=== PATIENT | male | born 1975 | race Two or more races ===

== ENCOUNTER 2017-11-01 04:57 | Emergency (ER) | payer MEDICAID ==
[~2017-11-01] VITALS: Ht 172.7 cm; Wt 92.1 kg
[2017-11-01 04:59] VITALS: BP 135/96; Ht 172.7 cm; Wt 92.1 kg
[2017-11-01 05:33] LABS: BASOPHILS 0.5 % (0-2); EOSINOPHILS 0.9 % (0-7); HEMATOCRIT 41.3 % (42.0-54.0); IMMATURE GRANULOCYTES 0.2 % (0-5); LYMPHOCYTES 31.1 % (15-50); MCH 29.6 pg (26.0-34.0); MCHC 36.3 g/dL (31.0-37.0); MCV 81.5 fL (80.0-100.0); MEAN PLATELET VOLUME 11.4 fL (7.4-10.4); MONOCYTES 7.7 % (2-11); NEUTROPHILS 59.6 % (40-80); PLATELET COUNT 188 10x3/uL (130-400); RBC 5.07 10x6/uL (4.20-6.10); RDW 12.9 % (11.5-14.5); WBC 8.7 10x3/uL (4.8-10.8)
[2017-11-01 05:53] LABS: ALBUMIN 3.7 g/dL (3.4-5.0); ALKALINE PHOSPHATASE 58 U/L (46-116); ALT (SGPT) 42 U/L (10-68); BILIRUBIN - TOTAL 1.27 mg/dL (0.2-1.3); CALC OSMOLALITY 281 mosm/kg (275-300); CALCIUM 8.8 mg/dL (8.5-10.1); CARBON DIOXIDE 28.4 mmol/L (21.0-32.0); CHLORIDE - SERUM 102 mmol/L (98-107); CREATININE - SERUM 0.9 mg/dL (0.6-1.3); GLUCOSE 194 mg/dL (74-106); POTASSIUM - SERUM 3.6 mmol/L (3.5-5.1); PROTEIN - SERUM 7.7 g/dL (6.4-8.2); SODIUM 139 mmol/L (136-145); UREA NITROGEN 11 mg/dL (7-18); eGFR NON AFRICAN AMERICAN > 90 mL/min (90-120)
[2017-11-01 05:58] LABS: CREATINE KINASE 107 UL (21-232); TROPONIN-I < 0.017 ng/mL (0.000-0.060)
[2017-11-01] MEDS ORDERED: ULTRACET TABLET1 TAB PO (06:27)
[2017-11-01] MEDS ORDERED: TOPAMAX50 MG PO (06:27)
[2017-11-01] MEDS ORDERED: KLONOPIN1 MG PO (06:27)
[2017-11-01 06:51] LABS: UDS - AMPHET POSITIVE QUAL (NEGATIVE); UDS - BARB NEGATIVE QUAL (NEGATIVE); UDS - BENZO NEGATIVE QUAL (NEGATIVE); UDS - COCAINE POSITIVE QUAL (NEGATIVE); UDS - OPIATE NEGATIVE QUAL (NEGATIVE); UDS - PCP NEGATIVE QUAL (NEGATIVE); UDS - THC NEGATIVE QUAL (NEGATIVE)
== END 2017-11-01 06:37 | disposition home or self-care (01) ==
LOC: D.ER 04:57 → EDBD 04:57 → D.ER 06:37
PROVIDERS: Emergency Medicine
DX: R51 Headache (principal); F41.9 Anxiety disorder, unspecified; R07.9 Chest pain, unspecified; F19.10 Other psychoactive substance abuse, uncomplicated

== ENCOUNTER 2018-06-26 16:12 | Inpatient (IN) | payer MEDICAID ==
[~2018-06-26] VITALS: Ht 172.7 cm; Wt 97.5 kg
[~2018-06-26 16:12] MED LIST: KLONOPIN1 MG PO; TOPAMAX50 MG PO; ULTRACET TABLET1 TAB PO
[2018-06-26] MEDS ORDERED: ZYPREXA10 MG PO (16:22)
[2018-06-26] MEDS ORDERED: GLUCOPHAGE1000 MG PO (16:22)
[2018-06-26 16:53] LABS: BASOPHILS 0.8 % (0-2); EOSINOPHILS 1.8 % (0-7); HEMATOCRIT 44.2 % (42.0-54.0); HEMOGLOBIN 15.3 g/dL (13.5-17.5); IMMATURE GRANULOCYTES 0.3 % (0-5); MCH 28.8 pg (26.0-34.0); MCHC 34.6 g/dL (31.0-37.0); MCV 83.2 fL (80.0-100.0); MEAN PLATELET VOLUME 10.8 fL (7.4-10.4); MONOCYTES 7.1 % (2-11); RBC 5.31 10x6/uL (4.20-6.10); RDW 12.6 % (11.5-14.5); WBC 9.2 10x3/uL (4.8-10.8)
[2018-06-26 17:13] LABS: PLATELET COUNT 250 10x3/uL (130-400)
[2018-06-26 17:23] LABS: ALBUMIN 3.3 g/dL (3.4-5.0); ALKALINE PHOSPHATASE 108 U/L (46-116); ALT (SGPT) 24 U/L (10-68); BILIRUBIN - TOTAL 0.37 mg/dL (0.2-1.3); CALC OSMOLALITY 276 mosm/kg (275-300); CALCIUM 8.9 mg/dL (8.5-10.1); CARBON DIOXIDE 27.3 mmol/L (21.0-32.0); CHLORIDE - SERUM 94 mmol/L (98-107); CREATININE - SERUM 0.7 mg/dL (0.6-1.3); POTASSIUM - SERUM 4.4 mmol/L (3.5-5.1); PROTEIN - SERUM 8.1 g/dL (6.4-8.2); SODIUM 130 mmol/L (136-145); UREA NITROGEN 10 mg/dL (7-18); eGFR NON AFRICAN AMERICAN > 90 mL/min (90-120)
[2018-06-26 17:24] LABS: GLUCOSE 398 mg/dL (74-106)
[2018-06-26 17:29] LABS: TROPONIN-I < 0.017 ng/mL (0.000-0.060)
[2018-06-26] MEDS ORDERED: GABAPENTIN100 MG PO (23:38)
[2018-06-26] MEDS ORDERED: STRATTERA80 MG PO (23:40)
[2018-06-26] MEDS ORDERED: VISTARIL50 MG PO (23:41)
[2018-06-27] VITALS: BP 122/78
[2018-06-27 00:53] VITALS: BP 122/78; BMI 32.7
[2018-06-27 04:00] VITALS: BP 114/77
[2018-06-27] MEDS ORDERED: KLONOPIN1 MG PO (05:09)
[2018-06-27 07:39] LABS: BASOPHILS 0.7 % (0-2); EOSINOPHILS 2.1 % (0-7); HEMATOCRIT 40.9 % (42.0-54.0); HEMOGLOBIN 14.3 g/dL (13.5-17.5); IMMATURE GRANULOCYTES 0.4 % (0-5); LYMPHOCYTES 37.5 % (15-50); MCH 28.7 pg (26.0-34.0); MCV 82.1 fL (80.0-100.0); MEAN PLATELET VOLUME 11.1 fL (7.4-10.4); MONOCYTES 5.8 % (2-11); NEUTROPHILS 53.5 % (40-80); PLATELET COUNT 253 10x3/uL (130-400); RBC 4.98 10x6/uL (4.20-6.10); RDW 12.6 % (11.5-14.5); WBC 9.4 10x3/uL (4.8-10.8)
[2018-06-27 07:50] VITALS: BP 110/70
[2018-06-27 08:01] LABS: ALBUMIN 2.8 g/dL (3.4-5.0); ALKALINE PHOSPHATASE 62 U/L (46-116); ALT (SGPT) 25 U/L (10-68); BILIRUBIN - TOTAL 0.43 mg/dL (0.2-1.3); CALCIUM 8.2 mg/dL (8.5-10.1); CARBON DIOXIDE 28.4 mmol/L (21.0-32.0); CHLORIDE - SERUM 100 mmol/L (98-107); CREATININE - SERUM 0.8 mg/dL (0.6-1.3); POTASSIUM - SERUM 4.1 mmol/L (3.5-5.1); PROTEIN - SERUM 7.4 g/dL (6.4-8.2); SODIUM 136 mmol/L (136-145); UREA NITROGEN 11 mg/dL (7-18); eGFR NON AFRICAN AMERICAN > 90 mL/min (90-120)
[2018-06-27 08:09] LABS: CALC OSMOLALITY 277 mosm/kg (275-300); GLUCOSE 232 mg/dL (74-106)
[2018-06-27 12:51] VITALS: BP 133/91
[2018-06-27 14:59] VITALS: Ht 172.7 cm; Wt 97.5 kg
[2018-06-27 18:55] VITALS: BP 107/63
[2018-06-28 00:17] VITALS: BP 115/74
[2018-06-28 05:30] VITALS: BP 121/71
[2018-06-28 08:10] VITALS: BP 135/95
[2018-06-28 09:23] LABS: ALKALINE PHOSPHATASE 87 U/L (46-116); ALT (SGPT) 28 U/L (10-68); BILIRUBIN - TOTAL 0.52 mg/dL (0.2-1.3); CALC OSMOLALITY 274 mosm/kg (275-300); CALCIUM 8.5 mg/dL (8.5-10.1); CARBON DIOXIDE 26.5 mmol/L (21.0-32.0); CHLORIDE - SERUM 95 mmol/L (98-107); CREATININE - SERUM 0.8 mg/dL (0.6-1.3); POTASSIUM - SERUM 4.4 mmol/L (3.5-5.1); PROTEIN - SERUM 7.4 g/dL (6.4-8.2); SODIUM 131 mmol/L (136-145); UREA NITROGEN 11 mg/dL (7-18); eGFR NON AFRICAN AMERICAN > 90 mL/min (90-120)
[2018-06-28 09:24] LABS: GLUCOSE 339 mg/dL (74-106)
[2018-06-28 11:11] LABS: APPEARANCE CLEAR (CLEAR); BILIRUBIN NEGATIVE (NEGATIVE); COLOR STRAW (YELLOW); GLUCOSE 1000 mg/dL (NEGATIVE); KETONE NEGATIVE (NEGATIVE); NITRITE NEGATIVE (NEGATIVE); PROTEIN NEGATIVE (NEGATIVE); SPECIFIC GRAVITY 1.015 (1.005-1.020); UROBILINOGEN NORMAL (NORMAL)
[2018-06-28 12:25] LABS: BASOPHILS 0.3 % (0-2); EOSINOPHILS 1.2 % (0-7); HEMATOCRIT 39.2 % (42.0-54.0); HEMOGLOBIN 14.3 g/dL (13.5-17.5); IMMATURE GRANULOCYTES 0.4 % (0-5); LYMPHOCYTES 20.8 % (15-50); MCH 29.1 pg (26.0-34.0); MCHC 36.5 g/dL (31.0-37.0); MONOCYTES 4.5 % (2-11); NEUTROPHILS 72.8 % (40-80); PLATELET COUNT 286 10x3/uL (130-400); RBC 4.91 10x6/uL (4.20-6.10); RDW 12.1 % (11.5-14.5); WBC 11.4 10x3/uL (4.8-10.8)
[2018-06-28 12:26] LABS: MCV 79.8 fL (80.0-100.0)
--- NOTE | 2018-06-28 16:13 | MORECARE ---
CASE MANAGEMENT DISCHARGE SUMMARY PATIENT: ZAHIDA BOWENS GARRETT UNIT: [id number] ADM DATE: 06/26/18 AGE: 42 : [birth year] SEX: M ROOM/BED: D.1211 AUTHOR: BAUTISTA FORMAN PHYSICIAN: REFERRING PHYSICIAN: JOSE FRANCISCO CHOPRA MD DATE OF SERVICE: 06/28/18 Discharge Plan Patient Name: ZAHIDA BOWENS [facility] [facility] 1975 Planned Disposition: Anticipated Discharge Date: Discharge Date: Expected LOS: Initial Reviewer: [email or web address] Initial Review Date: 06/28/2018 Generated: 06/28/18 5:13 pm DCPIA - Discharge Planning Initial Assessment Updated by [email or web address]: Beatriz Barger on 06/28/18 4:11 pm * PCP YONAS * Pharmacy [facility] * Preadmission Environment Home with Family * ADLs Independent * List name and contact numbers for known caregivers / representatives who currently or will assist patient after discharge: AROLDO , , * Can the patient safely return to the preadmission environment? Yes * Has this patient been hospitalized within the prior 30 days at any hospital? No Patient Name: ZAHIDA BOWENS Page 08404 at 1613 All edits/amendments must be made on the electronic document DICTATION DATE: 06/28/181611 RADIO PRESENTER: GILSON 06/28/18 1612 RPT#: [id number] [place] DATE: STATUS: ADM IN [facility] [address] [place] [address] END OF REPORT
--- NOTE | 2018-06-28 16:22 | MORECARE ---
CASE MANAGEMENT DISCHARGE SUMMARY PATIENT: ZAHIDA BOWENS GARRETT UNIT: [id number] ADM DATE: 06/26/18 AGE: 42 : [birth year] SEX: M ROOM/BED: D.1211 AUTHOR: BAUTISTA FORMAN PHYSICIAN: REFERRING PHYSICIAN: JOSE FRANCISCO CHOPRA MD DATE OF SERVICE: 06/28/18 Discharge Plan Patient Name: ZAHIDA BOWENS Facility: [facility]:[place] : 1975 Planned Disposition: Anticipated Discharge Date: Discharge Date: Expected LOS: Initial Reviewer: [email or web address] Initial Review Date: 06/28/2018 Generated: 06/28/18 5:22 pm Comments DCP- Discharge Planning Updated by [email or web address]: Beatriz Barger on 06/28/18 3:[address] Patient Name: ZAHIDA BOWENS Admission Status: ER Accout number: [id number] Admission Date: 06-26-2018 : 1975 Admission Diagnosis: Attending: JOSE FRANCISCO CHOPRA Current LOS: 2 Anticipated DC Date: Planned Disposition: Primary Insurance: MEDICAID [place] Discharge Planning Comments: PATIENT ASLEEP, CM MET WITH PATIENT'S AROLDO ABOUT DC PLANNING/NEEDS. STATES IF HE NEEDS WOUND CARE OR DRESSING CHANGES SHE CAN DO THEM. CM WILL ASSESS NEED FOR RESOURCES CLOSER TO DC DATE. STATES SHE DOESN'T THINK HE WILL DC BEFORE SUNDAY. CM TO FOLLOW AND ASSIST NEEDED. Budget Analyst: Beatriz Barger DCPIA - Discharge Planning Initial Assessment Updated by [email or web address]: Beatriz Barger on 06/28/18 4:11 pm * PCP YONAS * Pharmacy [facility] * Preadmission Environment Home with Family * ADLs Independent * List name and contact numbers for known caregivers / representatives who currently or will assist patient after discharge: AROLDO , * Can the patient safely return to the preadmission environment? Yes * Has this patient been hospitalized within the prior 30 days at any hospital? No Last DP export: 06/28/18 3:13 p Patient Name: ZAHIDA BOWENS Page 91740 at 1622 All edits/amendments must be made on the electronic document DICTATION DATE: 06/28/181620 CORPORATE OPERATIONS COMPLIANCE MANAGER: GILSON 06/28/181620 RPT#: [id number] [place] DATE: STATUS: ADM IN [facility] [address] [place] [address] END OF REPORT
[2018-06-28 16:27] VITALS: BP 112/66
[2018-06-28 20:26] VITALS: BP 100/65; BP 99/54
[2018-06-29] VITALS: BP 100/50
[2018-06-29 04:00] VITALS: BP 101/57
[2018-06-29 06:52] LABS: BASOPHILS 0.4 % (0-2); EOSINOPHILS 1.9 % (0-7); HEMATOCRIT 37.9 % (42.0-54.0); HEMOGLOBIN 13.4 g/dL (13.5-17.5); IMMATURE GRANULOCYTES 0.3 % (0-5); LYMPHOCYTES 32.3 % (15-50); MCH 28.5 pg (26.0-34.0); MCHC 35.4 g/dL (31.0-37.0); MCV 80.6 fL (80.0-100.0); MEAN PLATELET VOLUME 10.7 fL (7.4-10.4); MONOCYTES 6.6 % (2-11); NEUTROPHILS 58.5 % (40-80); PLATELET COUNT 254 10x3/uL (130-400); RDW 12.4 % (11.5-14.5); WBC 9.6 10x3/uL (4.8-10.8)
[2018-06-29 07:21] LABS: ALBUMIN 2.7 g/dL (3.4-5.0); ALKALINE PHOSPHATASE 51 U/L (46-116); ALT (SGPT) 22 U/L (10-68); BILIRUBIN - TOTAL 0.62 mg/dL (0.2-1.3); CALCIUM 8.5 mg/dL (8.5-10.1); CARBON DIOXIDE 26.4 mmol/L (21.0-32.0); CHLORIDE - SERUM 98 mmol/L (98-107); CREATININE - SERUM 0.8 mg/dL (0.6-1.3); MAGNESIUM - SERUM 1.9 mg/dL (1.8-2.4); POTASSIUM - SERUM 3.9 mmol/L (3.5-5.1); PROTEIN - SERUM 7.3 g/dL (6.4-8.2); SODIUM 134 mmol/L (136-145); eGFR NON AFRICAN AMERICAN > 90 mL/min (90-120)
[2018-06-29 07:22] LABS: CALC OSMOLALITY 276 mosm/kg (275-300); GLUCOSE 239 mg/dL (74-106); UREA NITROGEN 14 mg/dL (7-18)
[2018-06-29 08:13] VITALS: BP 127/58
[2018-06-29 12:10] VITALS: BP 118/78
[2018-06-29 15:17] VITALS: BP 118/71
[2018-06-29] MEDS ORDERED: METFORMIN HCL500 M1 (15:24)
[2018-06-29 20:22] VITALS: BP 112/74
[2018-06-30 00:23] VITALS: BP 107/65
[2018-06-30 05:16] VITALS: BP 110/64
[2018-06-30 06:31] LABS: BASOPHILS 0.4 % (0-2); HEMATOCRIT 38.1 % (42.0-54.0); HEMOGLOBIN 13.3 g/dL (13.5-17.5); IMMATURE GRANULOCYTES 0.6 % (0-5); LYMPHOCYTES 41.1 % (15-50); MCH 28.4 pg (26.0-34.0); MCHC 34.9 g/dL (31.0-37.0); MCV 81.4 fL (80.0-100.0); MEAN PLATELET VOLUME 10.5 fL (7.4-10.4); NEUTROPHILS 50.9 % (40-80); PLATELET COUNT 255 10x3/uL (130-400); RBC 4.68 10x6/uL (4.20-6.10); RDW 12.5 % (11.5-14.5)
[2018-06-30 06:33] LABS: WBC 6.9 10x3/uL (4.8-10.8)
[2018-06-30 07:12] LABS: ALBUMIN 2.7 g/dL (3.4-5.0); CALC OSMOLALITY 279 mosm/kg (275-300); CALCIUM 8.5 mg/dL (8.5-10.1); CARBON DIOXIDE 27.3 mmol/L (21.0-32.0); CHLORIDE - SERUM 101 mmol/L (98-107); CREATININE - SERUM 0.7 mg/dL (0.6-1.3); GLUCOSE 203 mg/dL (74-106); MAGNESIUM - SERUM 1.9 mg/dL (1.8-2.4); POTASSIUM - SERUM 4.3 mmol/L (3.5-5.1); SODIUM 137 mmol/L (136-145); UREA NITROGEN 12 mg/dL (7-18); eGFR NON AFRICAN AMERICAN > 90 mL/min (90-120)
[2018-06-30 07:26] LABS: ALKALINE PHOSPHATASE 58 U/L (46-116); BILIRUBIN - TOTAL 0.52 mg/dL (0.2-1.3); PROTEIN - SERUM 7.3 g/dL (6.4-8.2)
[2018-06-30 07:33] LABS: ALT (SGPT) 35 U/L (10-68)
[2018-06-30 08:59] VITALS: BP 98/52
--- NOTE | 2018-06-30 10:39 | EC ---
PATIENT:ZAHIDA BOWENS DATE OF SERVICE: 06/26/18 SEX: M MEDICAL RECORD: [id number] DATE OF : [birth year] LOCATION:D.M3 D.121 AGE OF PATIENT: 42 ADMISSION DATE: 06/26/18 REFERRING PHYSICIAN: INTERPRETING PHYSICIAN: MARK SOL MD ECHOCARDIOGRAM REPORT ECHO CHARGES 4 ECHO COMPLETE Date: 06/27/18 CLINICAL DIAGNOSIS: METH IV DRUG ABUSE ECHOCARDIOGRAPHIC MEASUREMENTS (adult normal given) AC root (d.<3.7cm) 3.4 cm LV Septum d (<1.2 cm> 1.5 cm Valve Excursion 2.2 cm LV Septum (systole) 2.2 cm Left Atria (s.<4.0cm> 3.4 cm LVPW d(<1.2cm) 1.5 cm RV (d.<2.3cm) 2.0 cm LVPW (sytole) 2.4 cm LV diastole(<5.6CM) 4.7 cm MV E-F(>70mm/sec) cm LV systole 2.1 cm LVOT Diameter 2.0 cm MV exc.(>10mm) cm Est.ejection fraction (50-75%) % DOPPLER: LVIT cm/sec A 50.0 cm/sec E 83.0 cm/sec LA cm/sec RVSP 20.0 mmHg LVOT 92.0 cm/sec AOP1/2T m/s Asc. Ao 112 cm/sec RVOT 57.0 cm/sec RA cm/sec PA 96.0 cm/sec AV Gradient Peak 5.0 mmHg AV Mean 2.9 mmHg AV Area 2.5 cm MV Gradient Peak 4.7 mmHg MV Mean 1.6 mmHg MV Area cm COMMENTS: Catering Convention Services Manager: 1 LUCY AQUINOOE Food Cart Attendant: 3 Dr. Cortez TAPE# PACS Pericardial Effusion N DATE OF SERVICE: Adequate 2-D, color-flow and spectral Doppler, and M-mode. LVH is present. LV internal dimensions are normal. Wall motion is normal. EF is greater than or equal to 55%. Aortic valve is tricuspid. No evidence of stenosis by Doppler interrogation. Left atrium appears normal. Mitral valve shows no prolapse. Trace MR. Right-sided chambers are grossly normal. Trace TR. ECHOCARDIOGRAM REPORT [id number] ZAHIDA BOWENS TRANSINT:[id number] Voice Confirmation ID: [id number] DOCUMENT ID: [id number] MARK SOL MD at 1039 CC: [id number] DICTATION DATE: 06/27/181458 KEY BED INSTALLER: 06/27/[address] [facility] [address] [place] [id number]
--- NOTE | 2018-06-30 11:22 | OP ---
PATIENT NAME: ZAHIDA BOWENS MEDICAL RECORD: [id number] :[birth year] LOCATION:D.M3 D.1211 ADMISSION DATE:06/26/18 SURGEON: MARGARET DAVIES MD DATE OF OPERATION: 06/27/2018 PREOPERATIVE DIAGNOSES: 1. Multiple abscesses of right elbow and forearm. 2. Septic elbow, right elbow. POSTOPERATIVE DIAGNOSES: 1. Multiple abscesses of right elbow and forearm. 2. Septic elbow, right elbow. PROCEDURES: 1. Right elbow arthrotomy with irrigation and debridement of infection. 2. Excisional debridement of antecubital fossa abscess. 3. Irrigation and debridement of volar forearm abscess. SURGEON: Margaret Davies MD SEATING UPHOLSTERER: Bianca Cho INTRAOPERATIVE COMPLICATIONS: None. SUMMARY OF PATHOLOGIC FINDINGS: The patient had a very large abscess in the entire antecubital fossa with complete obliteration of the cephalic vein. Upon entering the patient's elbow joint, turbid but not robin pus was noted and this was copiously lavaged. Another smaller area on the volar aspect of the forearm was also found to have small amount of purulence in them. All places were I&D'd. The antecubital abscess, being the worst, was packed and left open. The other 2 were closed. OPERATIVE SUMMARY IN DETAIL: After obtaining the appropriate preoperative orthopedic surgery consent as well as anesthetic consultation, evaluation, and clearance, the patient was brought to the operating room and placed on the operating table in the supine position. After adequate general laryngeal mask airway was administered, the patient's right upper extremity was prepped and draped in routine sterile fashion. Attention was first turned to the antecubital fossa. Incision was made and cultures were taken. Robin purulence was noted. A combination of scalpel and rongeur as well as curettage was utilized to debride all nonviable-appearing tissue including skin, subcutaneous tissue, portions of fat and fascia. Cephalic remnant was debrided likewise. This was copiously irrigated. At this point, incision was made over the lateral aspect of the elbow and taken down to the area just above the radial head. This was opened and turbid-appearing joint fluid was noticed. This was irrigated copiously with bulb syringe. Lastly, a small volar abscess was also I&D'd with very little amount of purulence noted; however, fascia was incised and not closed to prevent compartment syndrome. All wounds were irrigated. The lateral arthrotomy was closed with #1 Vicryl, 2-0 Vicryl, and 4-0 Prolene. The volar abscess was closed skin only with 4-0 Prolene. The antecubital fossa abscess was packed with half-inch iodoform gauze. Sterile dressings were applied. The patient was awakened and taken to the recovery room in stable condition. All final needle and sponge counts were correct. TRANSINT:[id number] Voice Confirmation ID: [id number] DOCUMENT ID: [id number] OPERATIVE REPORT [id number] ZAHIDA BOWENS MD, MARGARET SIM at 1122 CC: [id number] DICTATION DATE: 06/27/18 1140 CIRCULAR SAWYER STONE: 06/27/18 1339 ADM IN [place] [facility] [id number] [place] [address]
[2018-06-30 12:00] VITALS: BP 108/69
[2018-06-30 17:38] VITALS: BP 143/89
[2018-06-30 23:31] VITALS: BP 122/65
[2018-07-01 06:13] VITALS: BP 116/68
[2018-07-01 06:47] LABS: BASOPHILS 0.4 % (0-2); EOSINOPHILS 2.4 % (0-7); HEMATOCRIT 38.7 % (42.0-54.0); HEMOGLOBIN 13.5 g/dL (13.5-17.5); IMMATURE GRANULOCYTES 0.3 % (0-5); LYMPHOCYTES 40.6 % (15-50); MCH 28.5 pg (26.0-34.0); MCHC 34.9 g/dL (31.0-37.0); MCV 81.6 fL (80.0-100.0); MEAN PLATELET VOLUME 10.6 fL (7.4-10.4); MONOCYTES 5.7 % (2-11); NEUTROPHILS 50.6 % (40-80); PLATELET COUNT 251 10x3/uL (130-400); RBC 4.74 10x6/uL (4.20-6.10); RDW 12.6 % (11.5-14.5)
[2018-07-01 07:14] LABS: ALBUMIN 2.8 g/dL (3.4-5.0); ALKALINE PHOSPHATASE 62 U/L (46-116); BILIRUBIN - TOTAL 0.31 mg/dL (0.2-1.3); CALCIUM 8.7 mg/dL (8.5-10.1); CARBON DIOXIDE 28.2 mmol/L (21.0-32.0); CHLORIDE - SERUM 99 mmol/L (98-107); GLUCOSE 235 mg/dL (74-106); MAGNESIUM - SERUM 1.7 mg/dL (1.8-2.4); POTASSIUM - SERUM 3.9 mmol/L (3.5-5.1); PROTEIN - SERUM 7.1 g/dL (6.4-8.2); SODIUM 137 mmol/L (136-145); VANCOMYCIN - TROUGH 17.4 ug/mL (10.0-20.0)
[2018-07-01 07:15] LABS: ALT (SGPT) 24 U/L (10-68); CALC OSMOLALITY 283 mosm/kg (275-300); CREATININE - SERUM 0.9 mg/dL (0.6-1.3); UREA NITROGEN 17 mg/dL (7-18); eGFR NON AFRICAN AMERICAN > 90 mL/min (90-120)
[2018-07-01 08:30] VITALS: BP 118/73
[2018-07-01 12:41] VITALS: BP 120/79
[2018-07-01 16:00] VITALS: BP 108/75
[2018-07-01 21:29] VITALS: BP 110/72
[2018-07-02 00:29] VITALS: BP 129/77
[2018-07-02 04:10] LABS: HEPATITIS C ANTIBODY >11.0 S/CO RAT (0.0-0.9)
[2018-07-02 05:53] VITALS: BP 127/67
[2018-07-02 06:39] LABS: BASOPHILS 0.8 % (0-2); HEMATOCRIT 38.3 % (42.0-54.0); HEMOGLOBIN 13.2 g/dL (13.5-17.5); IMMATURE GRANULOCYTES 0.4 % (0-5); MCH 28.2 pg (26.0-34.0); MCHC 34.5 g/dL (31.0-37.0); MCV 81.8 fL (80.0-100.0); MEAN PLATELET VOLUME 10.8 fL (7.4-10.4); NEUTROPHILS 52.8 % (40-80); PLATELET COUNT 274 10x3/uL (130-400); RBC 4.68 10x6/uL (4.20-6.10); RDW 12.6 % (11.5-14.5); WBC 7.7 10x3/uL (4.8-10.8)
[2018-07-02 07:08] LABS: ALBUMIN 2.8 g/dL (3.4-5.0); ALKALINE PHOSPHATASE 94 U/L (46-116); ALT (SGPT) 25 U/L (10-68); BILIRUBIN - TOTAL 0.27 mg/dL (0.2-1.3); CALC OSMOLALITY 284 mosm/kg (275-300); CALCIUM 8.7 mg/dL (8.5-10.1); CARBON DIOXIDE 29.1 mmol/L (21.0-32.0); CHLORIDE - SERUM 99 mmol/L (98-107); POTASSIUM - SERUM 3.9 mmol/L (3.5-5.1); PROTEIN - SERUM 7.4 g/dL (6.4-8.2); SODIUM 136 mmol/L (136-145); UREA NITROGEN 18 mg/dL (7-18); eGFR NON AFRICAN AMERICAN 88 mL/min (90-120)
[2018-07-02 07:11] LABS: GLUCOSE 298 mg/dL (74-106)
[2018-07-02] MEDS ORDERED: HYDROCODON-ACE1 EA10 PO (07:29)
[2018-07-02] MEDS ORDERED: CLEOCIN HCL150 MG PO (07:30)
[2018-07-02 08:33] VITALS: BP 126/65
--- NOTE | 2018-07-02 14:23 | MORECARE ---
CASE MANAGEMENT DISCHARGE SUMMARY PATIENT: ZAHIDA BOWENS GARRETT UNIT: [id number] ADM DATE: 06/26/18 AGE: 42 : [birth year] SEX: M ROOM/BED: D.1211 AUTHOR: BAUTISTA FORMAN PHYSICIAN: REFERRING PHYSICIAN: JOSE FRANCISCO CHOPRA MD DATE OF SERVICE: 07/02/18 Discharge Plan Patient Name: ZAHIDA BOWENS Facility: [facility]:[place] : 1975 Planned Disposition: Anticipated Discharge Date: Discharge Date: Expected LOS: Initial Reviewer: [email or web address] Initial Review Date: 06/28/2018 Generated: 07/02/18 3:23 pm DCP- Discharge Planning Updated by [email or web address]: Beatriz Barger on 06/28/18 3:[address] Patient Name: ZAHIDA BOWENS Admission Status: ER Accout number: [id number] Admission Date: 06-26-2018 : 1975 Admission Diagnosis: Attending: JOSE FRANCISCO CHOPRA Current LOS: 2 Anticipated DC Date: Planned Disposition: Primary Insurance: MEDICAID [place] Discharge Planning Comments: PATIENT ASLEEP, CM MET WITH PATIENT'S AROLDO ABOUT DC PLANNING/NEEDS. STATES IF HE NEEDS WOUND CARE OR DRESSING CHANGES SHE CAN DO THEM. CM WILL ASSESS NEED FOR RESOURCES CLOSER TO DC DATE. STATES SHE DOESN'T THINK HE WILL DC BEFORE SUNDAY. CM TO FOLLOW AND ASSIST NEEDED. Winding Rack Operator: Beatriz Barger DCPIA - Discharge Planning Initial Assessment Updated by [email or web address]: Beatriz Barger on 06/28/18 4:11 pm * PCP YONAS * Pharmacy [facility] * Preadmission Environment Home with Family * ADLs Independent * List name and contact numbers for known caregivers / representatives who currently or will assist patient after discharge: AROLDO , * Can the patient safely return to the preadmission environment? Yes * Has this patient been hospitalized within the prior 30 days at any hospital? No External Providers External Provider: [facility] Next Contact Date: Service Request Date: Service Type: Resolution: Reviewer: Comments: Last DP export: 06/28/18 3:22 p Patient Name: ZAHIDA BOWENS Page 94142 at 1423 All edits/amendments must be made on the electronic document DICTATION DATE: 07/02/181422 MACHINE PACKAGING TECHNICIAN: GILSON 07/02/181422 RPT#: [id number] DC DATE: STATUS: ADM IN [facility] [address] [place] [address] END OF REPORT
--- NOTE | 2018-07-02 14:32 | MORECARE ---
CASE MANAGEMENT DISCHARGE SUMMARY PATIENT: ZAHIDA BOWENS UNIT: [id number] ADM DATE: 06/26/18 AGE: 42 : [birth year] SEX: M ROOM/BED: D.1211 AUTHOR: BAUTISTA FORMAN PHYSICIAN: REFERRING PHYSICIAN: JOSE FRANCISCO CHOPRA MD DATE OF SERVICE: 07/02/18 Discharge Plan Patient Name: ZAHIDA BOWENS Facility: [facility]:[place] : 1975 Planned Disposition: Anticipated Discharge Date: Discharge Date: Expected LOS: Initial Reviewer: [email or web address] Initial Review Date: 06/28/2018 Generated: 07/02/18 3:32 pm DCP- Discharge Planning Updated by [email or web address]: Beatriz Barger on 06/28/18 3:[address] Patient Name: ZAHIDA BOWENS Admission Status: ER Accout number: [id number] Admission Date: 06-26-2018 : 1975 Admission Diagnosis: Attending: JOSE FRANCISCO CHOPRA Current LOS: 2 Anticipated DC Date: Planned Disposition: Primary Insurance: MEDICAID [place] Discharge Planning Comments: PATIENT ASLEEP, CM MET WITH PATIENT'S AROLDO ABOUT DC PLANNING/NEEDS. STATES IF HE NEEDS WOUND CARE OR DRESSING CHANGES SHE CAN DO THEM. CM WILL ASSESS NEED FOR RESOURCES CLOSER TO DC DATE. STATES SHE DOESN'T THINK HE WILL DC BEFORE SUNDAY. CM TO FOLLOW AND ASSIST NEEDED. Farm Machinery Engine Mechanic: Beatriz Barger DCPIA - Discharge Planning Initial Assessment Updated by [email or web address]: Beatriz Barger on 06/28/18 4:11 pm * PCP YONAS * Pharmacy [facility] * Preadmission Environment Home with Family * ADLs Independent * List name and contact numbers for known caregivers / representatives who currently or will assist patient after discharge: AROLDO , * Can the patient safely return to the preadmission environment? Yes * Has this patient been hospitalized within the prior 30 days at any hospital? No External Providers External Provider: [facility] Next Contact Date: Service Request Date: Service Type: Resolution: Reviewer: Comments: [facility] Next Contact Date: Service Request Date: Service Type: Resolution: Reviewer: Comments: Last DP export: 07/02/18 1:23 p Patient Name: ZAHIDA BOWENS Page 11116 at 1432 All edits/amendments must be made on the electronic document DICTATION DATE: 07/02/181431 LOCK AND DAM EQUIPMENT REPAIRER: GILSON 07/02/181431 RPT#: [id number] PR DATE: STATUS: ADM IN [facility] [address] [place] [address] END OF REPORT
--- NOTE | 2018-07-02 14:53 | MORECARE ---
CASE MANAGEMENT DISCHARGE SUMMARY PATIENT: ZAHIDA BOWENS UNIT: [id number] ADM DATE: 06/26/18 AGE: 42 : [birth year] SEX: M ROOM/BED: D.1211 AUTHOR: BAUTISTA FORMAN PHYSICIAN: REFERRING PHYSICIAN: JOSE FRANCISCO CHOPRA MD DATE OF SERVICE: 07/02/18 Discharge Plan Patient Name: ZAHIDA BOWENS Facility: [facility]:[place] : 1975 Planned Disposition: Anticipated Discharge Date: Discharge Date: Expected LOS: Initial Reviewer: [id number] Initial Review Date: 06/28/2018 Generated: 07/02/18 3:53 pm Comments DCP- Discharge Planning Updated by [email or web address]: Cierra Mckeon on 07/02/18 1:[address] CM met with patient to discuss discharge planning / needs and order for home health services. Patient choice several home health agencies. CM called [facility], spoke with Christel who informed CM that she would have to get approval from welfare administrator d/t patient's pay source. CM spoke with [employer] [facility] and [facility]. Neither could see patient until Sunday. CM spoke with Nuris at [facility]. Agency able to admit patient tomorrow. CM informed them of patient's home address: [address] [place] [address] in [place] and that patient's has voiced willingness and able to do daily wound care. Home Health will admit tomorrow. CM informed patient and gave him agencies phone number to call if any problems. Patient verbalized understanding. DCP- Discharge Planning Updated by [id number]: Beatriz Barger on 06/28/18 3:[address] Patient Name: ZAHIDA BOWENS Admission Status: ER Accout number: [id number] Admission Date: 06-26-2018 : 1975 Admission Diagnosis: Attending: JOSE FRANCISCO CHOPRA Current LOS: 2 Anticipated DC Date: Planned Disposition: Primary Insurance: MEDICAID [place] Discharge Planning Comments: PATIENT ASLEEP, CM MET WITH PATIENT'S AROLDO ABOUT DC PLANNING/NEEDS. STATES IF HE NEEDS WOUND CARE OR DRESSING CHANGES SHE CAN DO THEM. CM WILL ASSESS NEED FOR RESOURCES CLOSER TO DC DATE. STATES SHE DOESN'T THINK HE WILL DC BEFORE SUNDAY. CM TO FOLLOW AND ASSIST NEEDED. Molding And Trim Installer: Beatriz Barger DCPIA - Discharge Planning Initial Assessment Updated by [email or web address]: Beatriz Barger on 06/28/18 4:11 pm * PCP YONAS * Pharmacy [facility] * Preadmission Environment Home with Family * ADLs Independent * List name and contact numbers for known caregivers / representatives who currently or will assist patient after discharge: AROLDO , , * Can the patient safely return to the preadmission environment? Yes * Has this patient been hospitalized within the prior 30 days at any hospital? No Last DP export: 07/02/18 1:32 p Patient Name: ZAHIDA BOWENS Page 38069 at 1453 All edits/amendments must be made on the electronic document DICTATION DATE: 07/02/181452 STATION ENGINEER CHIEF: GILSON 07/02/181452 RPT#: [id number] [place] DATE: STATUS: ADM IN [facility] [address] [place] [address] END OF REPORT
--- NOTE | 2018-07-02 17:20 | MORECARE ---
CASE MANAGEMENT DISCHARGE SUMMARY PATIENT: ZAHIDA BOWENS UNIT: [id number] ADM DATE: 06/26/18 AGE: 42 : 79 SEX: M ROOM/BED: D.1211 AUTHOR: DASIA,DOC PHYSICIAN: REFERRING PHYSICIAN: JOSE FRANCISCO CHOPRA MD DATE OF SERVICE: 07/02/18 Discharge Plan Patient Name: ZAHIDA BOWENS Facility: [facility]:[place] : 1975 Planned Disposition: Anticipated Discharge Date: Discharge Date: 07/02/2018 Expected LOS: Initial Reviewer: [id number] Initial Review Date: 06/28/2018 Generated: 07/02/18 6:20 pm Comments DCP- Discharge Planning Updated by [id number]: Cierra Mckeon on 07/02/18 4:[address] CM just received call back from Nuris with [facility] stating they would not be able to accept patient d/t his IV drug use. CM explained to Nuris that patient had already discharged from hospital and the other home health agencies were not able to staff services until Sunday. CM called and spoke with Roberth Ray, Film Producer with [facility], about issue with agency just now telling CM they couldn't accept patient after patient has already left hospital. Roberth stated he would call director of public health to see what could be done. DCP- Discharge Planning Updated by [email or web address]: Cierra Mckeon on 07/02/18 1:[address] CM met with patient to discuss discharge planning / needs and order for home health services. Patient choice several home health agencies. CM called [facility], spoke with Christel who informed CM that she would have to get approval from senior storage administrator d/t patient's pay source. CM spoke with [facility] and [facility]. Neither could see patient until Sunday. CM spoke with Nuris at [facility]. Agency able to admit patient tomorrow. CM informed them of patient's home address: [address] [place] [address] in [place] and that patient's has voiced willingness and able to do daily wound care. Home Health will admit tomorrow. CM informed patient and gave him agencies phone number to call if any problems. Patient verbalized understanding. DCP- Discharge Planning Updated by [email or web address]: Beatriz Barger on 06/28/18 3:[address] Patient Name: ZAHIDA BOWENS Admission Status: ER Accout number: [id number] Admission Date: 06-26-2018 : 1975 Admission Diagnosis: Attending: JOSE FRANCISCO CHOPRA Current LOS: 2 Anticipated DC Date: Planned Disposition: Primary Insurance: MEDICAID [place] Discharge Planning Comments: PATIENT ASLEEP, CM MET WITH PATIENT'S AROLDO ABOUT DC PLANNING/NEEDS. STATES IF HE NEEDS WOUND CARE OR DRESSING CHANGES SHE CAN DO THEM. CM WILL ASSESS NEED FOR RESOURCES CLOSER TO DC DATE. STATES SHE DOESN'T THINK HE WILL DC BEFORE SUNDAY. CM TO FOLLOW AND ASSIST NEEDED. Tower Observer: Beatriz Barger DCPIA - Discharge Planning Initial Assessment Updated by [email or web address]: Beatriz Barger on 06/28/18 4:11 pm * PCP YONAS * Pharmacy [facility] * Preadmission Environment Home with Family * ADLs Independent * List name and contact numbers for known caregivers / representatives who currently or will assist patient after discharge: LANDY KENDRICK, * Can the patient safely return to the preadmission environment? Yes * Has this patient been hospitalized within the prior 30 days at any hospital? No Coverage Notice Reviewer: [id number] Elmo Mckeon Notice Issued Date-Time: 07/02/2018 13:30 Notice Type: Patient Choice Letter Notice Delivered To: Patient Relationship to Patient: Self Rubber Covering Machine Operator Name: Delivery Method: HAND - Hand Delivered [place] Days: Prior Verbal Notification: Recipient Understood Notice: Yes Recipient Signature: Yes Med Rec Note Co-signed by Attending: Coverage Notice Comment: Last DP export: 07/02/18 1:53 p Patient Name: ZAHIDA BOWENS Page 49005 at 1720 All edits/amendments must be made on the electronic document DICTATION DATE: 07/02/181719 TECHNICAL ILLUSTRATOR: GISLON 07/02/181719 RPT#: [id number] DC DATE:07/02/18 STATUS: DIS IN [place] [address] [place] [address] END OF REPORT
--- NOTE | 2018-07-03 10:36 | MORECARE ---
CASE MANAGEMENT DISCHARGE SUMMARY PATIENT: ZAHIDA BOWENS UNIT: [id number] ADM DATE: 06/26/18 AGE: 42 : 79 SEX: M ROOM/BED: D.1211 AUTHOR: DASIADOC PHYSICIAN: REFERRING PHYSICIAN: JOSE FRANCISCO CHOPRA MD DATE OF SERVICE: 07/03/18 Discharge Plan Patient Name: ZAHIDA BOWENS Facility: [facility]:[place] : 1975 Planned Disposition: Anticipated Discharge Date: Discharge Date: 07/02/2018 Expected LOS: Initial Reviewer: [email or web address] Initial Review Date: 06/28/2018 Generated: 07/03/18 11:36 am Comments DCP- Discharge Planning Updated by [email or web address]: Cierra Mckeon on 07/03/18 9:[address] CM received call back from [facility]. Spoke with Roberth Ray who informed CM that agency would admit patient tomorrow. CM called and spoke with patient's , Aroldo, who stated she had spoken with agency and would keep dressing intact today. [facility] agency told her they would admit tomorrow at 10:00am. CM called and informed Dr. Warren and Dr. Alarcon of [facility] admit. DCP- Discharge Planning Updated by [id number]: Cierra Mckeon on 07/02/18 4:[address] CM just received call back from Pitman with [facility] stating they would not be able to accept patient d/t his IV drug use. CM explained to Pitman that patient had already discharged from hospital and the other home health agencies were not able to staff services until Sunday. CM called and spoke with Roberth Ray, Customer Care Representative with [facility], about issue with agency just now telling CM they couldn't accept patient after patient has already left hospital. Roberth stated he would call director of marketing operations to see what could be done. DCP- Discharge Planning Updated by [email or web address]: Cierra Mckeon on 07/02/18 1:[address] CM met with patient to discuss discharge planning / needs and order for home health services. Patient choice several home health agencies. CM called [facility], spoke with Christel who informed CM that she would have to get approval from deputy administrator d/t patient's pay source. CM spoke with [facility] and [facility]. Neither could see patient until Sunday. CM spoke with Nuris at [facility]. Agency able to admit patient tomorrow. CM informed them of patient's home address: [address] in [place] and that patient's has voiced willingness and able to do daily wound care. Home Health will admit tomorrow. CM informed patient and gave him agencies phone number to call if any problems. Patient verbalized understanding. DCP- Discharge Planning Updated by [id number]: Beatriz Barger on 06/28/18 3:[address] Patient Name: ZAHIDA BOWENS Admission Status: ER Accout number: [id number] Admission Date: 06-26-2018 : 1975 Admission Diagnosis: Attending: JOSE FRANCISCO CHOPRA Current LOS: 2 Anticipated DC Date: Planned Disposition: Primary Insurance: MEDICAID [place] Discharge Planning Comments: PATIENT ASLEEP, CM MET WITH PATIENT'S AROLDO ABOUT DC PLANNING/NEEDS. STATES IF HE NEEDS WOUND CARE OR DRESSING CHANGES SHE CAN DO THEM. CM WILL ASSESS NEED FOR RESOURCES CLOSER TO DC DATE. STATES SHE DOESN'T THINK HE WILL DC BEFORE SUNDAY. CM TO FOLLOW AND ASSIST NEEDED. Graduate Internship: Beatriz Barger DCPIA - Discharge Planning Initial Assessment Updated by [email or web address]: Beatriz Denita on 06/28/18 4:11 pm * PCP YONAS * Pharmacy [facility] * Preadmission Environment Home with Family * ADLs Independent * List name and contact numbers for known caregivers / representatives who currently or will assist patient after discharge: LANDY KENDRICK, * Can the patient safely return to the preadmission environment? Yes * Has this patient been hospitalized within the prior 30 days at any hospital? No Coverage Notice Reviewer: [id number] Elmo Mckeon Notice Issued Date-Time: 07/02/2018 13:30 Notice Type: Patient Choice Letter Notice Delivered To: Patient Relationship to Patient: Self Kindergarten Paraprofessional Name: Delivery Method: HAND - Hand Delivered Bethany Days: Prior Verbal Notification: Recipient Understood Notice: Yes Recipient Signature: Yes Med Rec Note Co-signed by Attending: Coverage Notice Comment: Last DP export: 07/02/18 4:20 p Patient Name: ZAHIDA BOWENS Page [id number] at 1036 All edits/amendments must be made on the electronic document DICTATION DATE: 07/03/18 1035 TOBACCO CLOTH RECLAIMER: GILSON 07/03/18 1035 RPT#: [id number] DC DATE:07/02/18 STATUS: DIS IN [facility] [address] [place] [address] END OF REPORT
== END 2018-07-02 16:58 | disposition home health service (06) | DRG 464 ==
LOC: D.ER 16:12 → D.EDHOLD 18:30 → D.M3 18:30
PROVIDERS: Emergency Medicine; Family Medicine; Internal Medicine Nephrology; Orthopaedic Surgery; Student in an Organized Health Care Education/Training Program; ADMIT Emergency Medicine; ATTEND Emergency Medicine
PROC: 0JBG0ZZ Excision of Right Lower Arm Subcutaneous Tissue and Fascia, Open Approach (ICD-10-PCS; 2018-06-27)
PROC: 0JBG0ZZ Excision of Right Lower Arm Subcutaneous Tissue and Fascia, Open Approach (ICD-10-PCS; principal; 2018-06-27 13:00)
PROC: 05HC33Z Insertion of Infusion Device into Left Basilic Vein, Percutaneous Approach (ICD-10-PCS; 2018-06-28)
PROC: B54NZZA Ultrasonography of Left Upper Extremity Veins, Guidance (ICD-10-PCS; 2018-06-28)
DX: M00.821 Arthritis due to other bacteria, right elbow (principal); L02.413 Cutaneous abscess of right upper limb; E87.1 Hypo-osmolality and hyponatremia; L03.113 Cellulitis of right upper limb; F17.213 Nicotine dependence, cigarettes, with withdrawal; E11.9 Type 2 diabetes mellitus without complications; B19.20 Unspecified viral hepatitis C without hepatic coma; F15.10 Other stimulant abuse, uncomplicated; F41.9 Anxiety disorder, unspecified; E83.42 Hypomagnesemia; F20.9 Schizophrenia, unspecified

== ENCOUNTER 2019-11-30 23:26 | Inpatient (IN) | payer MEDICAID ==
[~2019-11-30] VITALS: Ht 172.7 cm; Wt 95.3 kg
[~2019-11-30 23:26] MED LIST changes: +CLEOCIN HCL150 MG PO; +GABAPENTIN100 MG PO; +GLUCOPHAGE1000 MG PO; +HYDROCODON-ACE1 EA10 PO; +METFORMIN HCL500 M1; +STRATTERA80 MG PO; +VISTARIL50 MG PO; +ZYPREXA10 MG PO
[2019-11-30] MEDS ORDERED: LAMICTAL100 MG PO (23:37)
[2019-11-30] MEDS ORDERED: GLYBURIDE5 M1 PO (23:37)
[2019-11-30] MEDS ORDERED: ADDERALL 30 MG30 MG (23:37)
[2019-11-30] MEDS ORDERED: THORAZINE25 MG PO (23:38)
[2019-12-01 01:16] LABS: BASOPHILS 0.8 % (0-2); EOSINOPHILS 1.8 % (0-7); HEMATOCRIT 45.7 % (42.0-54.0); HEMOGLOBIN 16.2 g/dL (13.5-17.5); IMMATURE GRANULOCYTES 0.3 % (0-5); LYMPHOCYTES 38.1 % (15-50); MCH 29.3 pg (26.0-34.0); MCHC 35.4 g/dL (31.0-37.0); MCV 82.8 fL (80.0-100.0); MONOCYTES 5.9 % (2-11); NEUTROPHILS 53.1 % (40-80); PLATELET COUNT 269 10x3/uL (130-400); RBC 5.52 10x6/uL (4.20-6.10); RDW 12.3 % (11.5-14.5); WBC 9.8 10x3/uL (4.8-10.8)
[2019-12-01 01:34] LABS: CALC OSMOLALITY 276 mosm/kg (275-300); CALCIUM 8.9 mg/dL (8.5-10.1); CARBON DIOXIDE 26.2 mmol/L (21.0-32.0); CHLORIDE - SERUM 100 mmol/L (98-107); CREATININE - SERUM 0.9 mg/dL (0.6-1.3); GLUCOSE 280 mg/dL (74-106); SODIUM 133 mmol/L (136-145); UREA NITROGEN 14 mg/dL (7-18); eGFR NON AFRICAN AMERICAN > 90 mL/min (90-120)
--- NOTE | 2019-12-01 01:40 | NUR ---
MULTIPLE IV ATTEMPTS MADE BY MYSELF, MONSE CACERES, AND EJ ATTEMPTED BY DR. LAZO W/O SUCCESS. PT HAS PAST HX OF IV DRUG USAGE AND STATES HE HAS HAD TO HAVE CVL PLACED BEFORE. TOTAL ATTEMPTS 9. OBTAINED 22GA IV IN LEFT UPPER ARM JUST ABOVE AXILLA.
[2019-12-01 01:41] LABS: ALBUMIN 3.7 g/dL (3.4-5.0); ALKALINE PHOSPHATASE 83 U/L (30-120); ALT (SGPT) 55 U/L (10-68); BILIRUBIN - TOTAL 0.58 mg/dL (0.2-1.3); CREATINE KINASE 44 UL (21-232); PROTEIN - SERUM 7.9 g/dL (6.4-8.2)
[2019-12-01 02:04] LABS: INR 0.98 (0.85-1.17); PROTIME 12.9 SECONDS (11.6-15.0)
[2019-12-01 02:06] LABS: D-DIMER-QUANTITATIVE 0.47 ug/mLFEU (0.20-0.54)
[2019-12-01 02:38] LABS: APTT 30.5 SECONDS (22.8-39.4)
[2019-12-01 04:16] VITALS: BP 134/80
--- NOTE | 2019-12-01 04:30 | NUR ---
A&O X 4, AMBULATES INDEPENDENTLY. DENIES PAIN AT THIS TIME. SWOLLEN AREA NOTED TO LLE. REPORTS SOME DIFFICULTY WHEN BEGINNING TO VOID. NO NEEDS VOICED AT THIS TIME, CTM.
[2019-12-01 04:48] VITALS: BP 122/79; BMI 32.0
--- NOTE | 2019-12-01 04:58 | NUR ---
ADMISSION ASSESSMENT COMPLETE. DISCUSSED DIABETES MANAGEMENT WITH PT HE IS HAVING HIGH BLOOD SUGAR READINGS, AND REPORTED HIS LAST A1C WAS 13. TOLD PT TO ASK MD IF A VIOLIN TEACHER CONSULT WOULD BE BENIFICIAL TO HELP HIM MANAGE HIS BLOOD SUGARS BETTER.
[2019-12-01 08:23] LABS: NITRITE NEGATIVE (NEGATIVE)
[2019-12-01 08:24] LABS: BILIRUBIN NEGATIVE (NEGATIVE); KETONE NEGATIVE (NEGATIVE); UROBILINOGEN NORMAL (NORMAL)
[2019-12-01 08:54] VITALS: BP 127/81
[2019-12-01 09:05] LABS: UDS - AMPHET POSITIVE QUAL (NEGATIVE); UDS - BARB NEGATIVE QUAL (NEGATIVE); UDS - BENZO NEGATIVE QUAL (NEGATIVE); UDS - COCAINE NEGATIVE QUAL (NEGATIVE); UDS - OPIATE POSITIVE QUAL (NEGATIVE); UDS - PCP NEGATIVE QUAL (NEGATIVE); UDS - THC NEGATIVE QUAL (NEGATIVE)
--- NOTE | 2019-12-01 10:51 | NUR ---
PATIENT IN BED RESTING. NPO PER ORDERS. DENIES NEEDS OR PAIN. BED LOW POSITION, CALL LIGHT IN REACH, WILL CONTINUE TO MONITOR.
[2019-12-01 13:05] VITALS: BP 113/72
[2019-12-01 13:33] LABS: CKMB 0.4 U/L (0.0-3.6); CREATINE KINASE 43 UL (21-232); MAGNESIUM - SERUM 1.9 mg/dL (1.8-2.4); TROPONIN-I 0.027 ng/mL (0.000-0.060)
[2019-12-01 15:05] VITALS: BMI 31.9
[2019-12-01 17:37] VITALS: BP 103/74
[2019-12-01 17:48] VITALS: Ht 172.7 cm; Wt 95.3 kg
[2019-12-01 19:57] LABS: CKMB 0.8 U/L (0.0-3.6); CREATINE KINASE 43 UL (21-232); TROPONIN-I 0.017 ng/mL (0.000-0.060)
[2019-12-01 22:03] VITALS: BP 127/80
[2019-12-02] VITALS: BP 107/72
[2019-12-02 02:18] LABS: CKMB 0.3 U/L (0.0-3.6); CREATINE KINASE 42 UL (21-232); TROPONIN-I < 0.017 ng/mL (0.000-0.060)
[2019-12-02 04:00] VITALS: BP 116/74
[2019-12-02 07:21] LABS: BASOPHILS 0.8 % (0-2); EOSINOPHILS 2.7 % (0-7); HEMOGLOBIN 14.8 g/dL (13.5-17.5); IMMATURE GRANULOCYTES 0.4 % (0-5); LYMPHOCYTES 42.4 % (15-50); MCHC 34.4 g/dL (31.0-37.0); MCV 84.3 fL (80.0-100.0); MEAN PLATELET VOLUME 10.6 fL (7.4-10.4); MONOCYTES 6.8 % (2-11); NEUTROPHILS 46.9 % (40-80); RDW 12.3 % (11.5-14.5)
[2019-12-02 07:29] LABS: PLATELET COUNT 215 10x3/uL (130-400); WBC 7.1 10x3/uL (4.8-10.8)
[2019-12-02 07:44] LABS: UDS - AMPHET POSITIVE QUAL (NEGATIVE); UDS - BARB NEGATIVE QUAL (NEGATIVE); UDS - BENZO NEGATIVE QUAL (NEGATIVE); UDS - COCAINE NEGATIVE QUAL (NEGATIVE); UDS - OPIATE POSITIVE QUAL (NEGATIVE); UDS - PCP NEGATIVE QUAL (NEGATIVE); UDS - THC NEGATIVE QUAL (NEGATIVE)
[2019-12-02 07:55] LABS: ALKALINE PHOSPHATASE 66 U/L (30-120); ALT (SGPT) 57 U/L (10-68); CALC OSMOLALITY 282 mosm/kg (275-300); CALCIUM 8.5 mg/dL (8.5-10.1); CARBON DIOXIDE 27.1 mmol/L (21.0-32.0); CHLORIDE - SERUM 104 mmol/L (98-107); CREATININE - SERUM 0.8 mg/dL (0.6-1.3); GLUCOSE 250 mg/dL (74-106); MAGNESIUM - SERUM 1.9 mg/dL (1.8-2.4); POTASSIUM - SERUM 4.2 mmol/L (3.5-5.1); PROTEIN - SERUM 6.3 g/dL (6.4-8.2); SODIUM 137 mmol/L (136-145); UREA NITROGEN 15 mg/dL (7-18); eGFR NON AFRICAN AMERICAN > 90 mL/min (90-120)
[2019-12-02 08:05] LABS: BILIRUBIN NEGATIVE (NEGATIVE); KETONE NEGATIVE (NEGATIVE); NITRITE NEGATIVE (NEGATIVE); UROBILINOGEN NORMAL (NORMAL)
[2019-12-02 11:03] VITALS: BP 112/65
[2019-12-02 15:15] VITALS: BP 143/83
[2019-12-02 15:59] VITALS: BP 131/81
[2019-12-02 20:00] VITALS: BP 127/89
--- NOTE | 2019-12-02 23:00 | NUR ---
REPORT GIVEN BY ROXANNA VO
[2019-12-03] VITALS: BP 154/96
--- NOTE | 2019-12-03 00:50 | NUR ---
PT IS SLEEPING AT THIS TIME. HE HAD AN I&D OF HIS LEFT CALF ON SUNDAY. HIS DRESSING IS SLIDING UP AND DOWN SO IT WAS REINFORCED WITH 4X4S AND ABD PADS. PT GETS BS EVERY 6 HOURS. HE HAS AN IV IN THE LEFT UPPER ARM WITH NS INFUSING 125ML/HR. HE IS ON CONTACT PRECAUTIONS. HE IS RECEIVING IV ANTIBIOTICS.
--- NOTE | 2019-12-03 03:45 | NUR ---
PT AWAKE FOR IV MEDS AND BS. HE C/O PAIN. HE WAS GIVEN 4 MG IV MORPHINE. I TOLD HIM HER HAD A PILL ORDERED SO THIS IS WHAT HE COULD EXPECT FROM NOW ON. HIS WOMAN FRIEND/ IS IN THE BED WITH HIM. I TOLD HIM THIS PROBABLY WASN'T A GOOD IDEA SINCE HE WAS ON ISOLATION PRECAUTIONS.
[2019-12-03 04:00] VITALS: BP 138/85
--- NOTE | 2019-12-03 06:00 | NUR ---
PT IS SLEEPING.
[2019-12-03] MEDS ORDERED: ROXICODONE15 MG PO (09:02)
[2019-12-03] MEDS ORDERED: VIBRAMYCIN50 MG PO (09:02)
[2019-12-03 09:58] VITALS: BP 132/87
--- NOTE | 2019-12-03 09:58 | NUR ---
ALERT AND ORIENTED. LUNGS CLEAR BILATERALLY. HEART SOUNDS S1 AND S2 HEARD IN ALL FOX. BOWEL SOUNDS ACTIVE X 4. IV TO LFA PATENT WITHOUT REDNESS. BED LOW. CALL LOPEZ AND PERSONAL ITEMS IN REACH. WILL CONTINUE TO MONITOR.
--- NOTE | 2019-12-03 12:26 | MORECARE ---
CASE MANAGEMENT DISCHARGE SUMMARY PATIENT: ZAHIDA BOWENS GARRETT UNIT: [id number] ADM DATE: 12/01/19 AGE: 44 : [birth year] SEX: M ROOM/BED: D.2240 AUTHOR: BAUTISTA FORMAN PHYSICIAN: REFERRING PHYSICIAN: ILSA HENRY MD DATE OF SERVICE: 12/03/19 Discharge Plan Patient Name: ZAHIDA BOWENS Facility: [facility]:[place] : 1975 Planned Disposition: Anticipated Discharge Date: Discharge Date: Expected LOS: Initial Reviewer: [email or web address] Initial Review Date: 12/01/2019 Generated: 12/03/19 1:25 pm Comments DCP- Discharge Planning Updated by [id number]: Beatriz Barger on 12/03/19 11:[address] Patient Name: ZAHIDA BOWENS Admission Status: ER Accout number: [id number] Admission Date: 12-01-2019 : 1975 Admission Diagnosis: Attending: ILSA GARSIA Current LOS: 2 Anticipated DC Date: Planned Disposition: Primary Insurance: MEDICAID [place] Discharge Planning Comments: CM met with patient at bedside after explaining CM role and obtaining verbal consent. CM discussed availability / needs of home health, REHAB and medical equipment. PATIENT DENIES ANY DISCHARGE NEEDS. STATES HE WILL DO HIS DRESSING CHANGES HIMSELF, DECLINES HH. Rn Clinical: Beatriz Barger Patient Name: ZAHIDA BOWENS Page [phone] at 1226 All edits/amendments must be made on the electronic document DICTATION DATE: 12/03/19 1225 FAMILY PHYSICIAN: GILSON 12/03/19 1225 RPT#: [id number] DC DATE: STATUS: ADM IN [place] [id number] [place] [address] END OF REPORT
--- NOTE | 2019-12-03 13:41 | NUR ---
1230: rEVIEWED DISCHARGE PAPERWORK AND EDUCATION WITH PATIENT. RECEIVED WELL. NO ACUTE DISTRESS NOTED. IN A HURRY TO LEAVE. ASKED FOR W/C AND THE PATIENT AND WERE BOTH GONE BEFORE I GOT BACK TO THE ROOM WITH THE W/C JUST A FEW MINUTES LATER.
--- NOTE | 2019-12-03 16:05 | MORECARE ---
CASE MANAGEMENT DISCHARGE SUMMARY PATIENT: ZAHIDA BOWENS [place] UNIT: [id number] ADM DATE: 12/01/19 AGE: 44 : 79 SEX: M ROOM/BED: D.2240 AUTHOR: BAUTISTA FORMAN PHYSICIAN: REFERRING PHYSICIAN: ILSA HENRY MD DATE OF SERVICE: 12/03/19 Discharge Plan Patient Name: ZAHIDA BOWENS Facility: [facility]:[place] : 1975 Planned Disposition: Anticipated Discharge Date: Discharge Date: 12/03/2019 Expected LOS: Initial Reviewer: [email or web address] Initial Review Date: 12/01/2019 Generated: 12/03/19 5:04 pm Comments DCP- Discharge Planning Updated by [email or web address]: Beatriz Barger on 12/03/19 11:[address] Patient Name: ZAHIDA BOWENS Admission Status: ER Accout number: [id number] Admission Date: 12-01-2019 : 1975 Admission Diagnosis: Attending: ILSA GARSIA Current LOS: 2 Anticipated DC Date: Planned Disposition: Primary Insurance: MEDICAID [place] Discharge Planning Comments: CM met with patient at bedside after explaining CM role and obtaining verbal consent. CM discussed availability / needs of home health, REHAB and medical equipment. PATIENT DENIES ANY DISCHARGE NEEDS. STATES HE WILL DO HIS DRESSING CHANGES HIMSELF, DECLINES HH. It Manager: Beatriz Hummel DP export: 12/03/19 11:26 a Patient Name: ZAHIDA BOWENS Page [phone] at 1605 All edits/amendments must be made on the electronic document DICTATION DATE: 12/03/19 1604 GLUE BONE CRUSHER: GILSON 12/03/19 1604 RPT#: [id number] DC DATE:12/03/19 STATUS: DIS IN [facility] [address] [place] [address] END OF REPORT
--- NOTE | 2019-12-04 13:22 | OP ---
PATIENT NAME: ZAHIDA BOWENS MEDICAL RECORD: [id number] :[birth year] LOCATION:[id number] ADMISSION DATE:12/01/19 SURGEON: FRANKI MORENO MD DATE OF OPERATION: 12/02/2019 PREOPERATIVE DIAGNOSES: 1. Left calf abscess. 2. Polysubstance abuse. 3. Schizophrenia. POSTOPERATIVE DIAGNOSES: 1. Left calf abscess. 2. Polysubstance abuse. 3. Schizophrenia. PROCEDURE: I&D of the left calf abscess. SURGEON: Franki Moreno MD REPORT OF PROCEDURE: The patient's left lower extremity was prepped and draped in sterile fashion. On the lateral aspect of the left calf region, there was an area of fluctuance. A longitudinal 2 cm incision was made overlying this and there was a spillage of purulent material. Cultures were taken times 2. We then penetrated the wound and could not feel any evidence of any tracking. This stayed in the subcutaneous tissues and did not penetrate the fascia. We irrigated out the wound with peroxide and saline solution and then packed the wound with iodoform half-inch gauze and covered this with 4 x 4s and Kerlix. COMPLICATIONS: None. CONDITION: Stable. ANESTHESIA: General endotracheal. BLOOD LOSS: 30 mL. TRANSINT:[id number] Voice Confirmation ID: [id number] DOCUMENT ID: [id number] FRANKI MORENO MD at 1322 CC: [id number] DICTATION DATE: 12/02/19 1507 PIPE SETTER: 12/03/19 0145 DIS IN 12/03/19 [id number] [place] [address]
[2019-12-04] MEDS ORDERED: PHENERGAN25 M1 PO (23:18)
== END 2019-12-03 13:56 | disposition home or self-care (01) | DRG 603 ==
LOC: D.ER 23:26 → D.MS 12-01 03:02
PROVIDERS: Family Medicine; Surgery; ADMIT Family Medicine Adult Medicine; ATTEND Family Medicine Adult Medicine
PROC: 0J9P3ZZ Drainage of Left Lower Leg Subcutaneous Tissue and Fascia, Percutaneous Approach (ICD-10-PCS; principal; 2019-12-02 14:00)
DX: L02.416 Cutaneous abscess of left lower limb (principal); E87.1 Hypo-osmolality and hyponatremia; F17.203 Nicotine dependence unspecified, with withdrawal; E11.65 Type 2 diabetes mellitus with hyperglycemia; F20.9 Schizophrenia, unspecified; F19.10 Other psychoactive substance abuse, uncomplicated

== ENCOUNTER 2019-12-04 21:52 | Emergency (ER) | payer MEDICAID ==
[~2019-12-04] VITALS: Ht 170.2 cm; Wt 95.5 kg
[~2019-12-04 21:52] MED LIST changes: +ADDERALL 30 MG30 MG; +GLYBURIDE5 M1 PO; +LAMICTAL100 MG PO; +ROXICODONE15 MG PO; +THORAZINE25 MG PO; +VIBRAMYCIN50 MG PO
[2019-12-04 21:59] VITALS: Ht 170.2 cm; Wt 95.5 kg
[2019-12-04 22:41] LABS: BASOPHILS 0.6 % (0-2); EOSINOPHILS 0.8 % (0-7); HEMOGLOBIN 17.4 g/dL (13.5-17.5); IMMATURE GRANULOCYTES 0.3 % (0-5); LYMPHOCYTES 20.7 % (15-50); MCH 29.6 pg (26.0-34.0); MCHC 35.5 g/dL (31.0-37.0); MCV 83.5 fL (80.0-100.0); MEAN PLATELET VOLUME 10.6 fL (7.4-10.4); MONOCYTES 6.1 % (2-11); NEUTROPHILS 71.5 % (40-80); PLATELET COUNT 171 10x3/uL (130-400); RBC 5.87 10x6/uL (4.20-6.10); RDW 12.3 % (11.5-14.5); WBC 7.9 10x3/uL (4.8-10.8)
[2019-12-04 22:52] LABS: INR 1.06 (0.85-1.17); PROTIME 13.7 SECONDS (11.6-15.0)
[2019-12-04 22:55] LABS: CALC OSMOLALITY 287 mosm/kg (275-300); CALCIUM 9.6 mg/dL (8.5-10.1); CARBON DIOXIDE 25.9 mmol/L (21.0-32.0); CHLORIDE - SERUM 98 mmol/L (98-107); CREATININE - SERUM 1.4 mg/dL (0.6-1.3); POTASSIUM - SERUM 3.9 mmol/L (3.5-5.1); SODIUM 137 mmol/L (136-145); UREA NITROGEN 11 mg/dL (7-18); eGFR NON AFRICAN AMERICAN 59 mL/min (90-120)
[2019-12-04 22:56] LABS: BILIRUBIN NEGATIVE (NEGATIVE); KETONE NEGATIVE (NEGATIVE); NITRITE NEGATIVE (NEGATIVE); UROBILINOGEN NORMAL (NORMAL)
[2019-12-04 23:00] LABS: GLUCOSE 369 mg/dL (74-106)
[2019-12-04 23:01] LABS: EPITHELIAL CELLS NSEEN /hpf (0-5); RED CELLS - URINE 0-5 /hpf (0-5); WHITE CELLS - URINE 0-5 /hpf (0-5)
[2019-12-04 23:02] LABS: BACTERIA FEW /hpf (NONE SEEN)
[2019-12-04 23:07] LABS: ALBUMIN 3.7 g/dL (3.4-5.0); ALKALINE PHOSPHATASE 60 U/L (30-120); ALT (SGPT) 40 U/L (10-68); BILIRUBIN - TOTAL 1.21 mg/dL (0.2-1.3); CKMB 0.6 U/L (0.0-3.6); CREATINE KINASE 52 UL (21-232); MAGNESIUM - SERUM 1.9 mg/dL (1.8-2.4); PROTEIN - SERUM 7.8 g/dL (6.4-8.2)
[2019-12-04 23:07] LABS: UDS - AMPHET POSITIVE QUAL (NEGATIVE); UDS - BARB NEGATIVE QUAL (NEGATIVE); UDS - BENZO NEGATIVE QUAL (NEGATIVE); UDS - COCAINE NEGATIVE QUAL (NEGATIVE); UDS - OPIATE NEGATIVE QUAL (NEGATIVE); UDS - PCP NEGATIVE QUAL (NEGATIVE); UDS - THC NEGATIVE QUAL (NEGATIVE)
[2019-12-04 23:08] LABS: TROPONIN-I < 0.017 ng/mL (0.000-0.060)
[2019-12-04] MEDS ORDERED: PHENERGAN25 M1 PO (23:18)
[2019-12-04 23:52] VITALS: BP 152/113
== END 2019-12-04 23:54 | disposition home or self-care (01) ==
LOC: D.ER 21:52
PROVIDERS: Family Medicine
DX: R11.2 Nausea with vomiting, unspecified (principal); R07.9 Chest pain, unspecified; E11.65 Type 2 diabetes mellitus with hyperglycemia; Z79.84 Long term (current) use of oral hypoglycemic drugs